=== PATIENT | female | born 1945 | race Caucasian/White ===

== ENCOUNTER 2017-03-13 16:00 | Emergency (ER) | payer OTHER ==
[~2017-03-13] VITALS: Wt 83.9 kg
[~2017-03-13 16:00] MED LIST: AMLODIPINE5 MG PO; ATIVAN1 MG PO; AUGMENTIN 875 M1 TAB PO; AUGMENTIN 875875 MG PO; BIAXIN500 MG PO; CLARITIN10 MG PO; KENALOG0.1% TP; LOMOTIL 0.025 M1 TA1 PO; MEDROL DOSEPAK4 MG PO; NASONEX0.05 MG/AC NS; PHENERGAN25 M1 PO; PRAVASTATIN SOD40 MG PO; PREDNICOT20 MG PO; SEPTRA DS 800 M1 TAB PO; SKELAXIN800 MG PO; TENORMIN25 MG PO; TRAMADOL50 MG PO; ULTRAM50 MG PO; VISTARIL25 MG PO; XYZAL5 MG PO; ZANTAC 150150 MG PO; ZITHROMAX100 MG/5 M PO; ZOFRAN ODT4 MG SL; ZOLOFT25 MG PO; [UNRECOGNIZED DRUG - OTHER] PO
[2017-03-13] MEDS ORDERED: AUGMENTIN 875875 MG PO (16:38)
== END 2017-03-13 16:39 | disposition home or self-care (01) ==
LOC: ED 16:00
DX: J01.10 Acute frontal sinusitis, unspecified (principal); Z88.1 Allergy status to other antibiotic agents; Z88.8 Allergy status to other drugs, medicaments and biological substances; Z79.899 Other long term (current) drug therapy

== ENCOUNTER → 2018-06-23 | Outpatient (CLI) | payer OTHER | END | disposition home or self-care (01) | LOC: RAD 16:16 | DX: M47.896 Other spondylosis, lumbar region (principal); R20.0 Anesthesia of skin ==

== ENCOUNTER → 2018-07-29 | Day surgery (SDC) | payer OTHER ==
[~2018-07-29] VITALS: Ht 162.5 cm; Wt 81.6 kg
[~2018-07-29] MED LIST changes: +BENICAR HCT 401 EACH PO; +LOPRESSOR25 MG PO
--- NOTE | ~2018-07-29 | O ---
[place], [place] OPERATIVE NOTE NAME: MAMTA PISANO UNIT #: [id number] ROOM: DOCTOR: ARNALDO WU MD BIRTHDATE: [birth year] DOS: 07/29/2018 PREOPERATIVE DIAGNOSIS: Cataract, left eye. POSTOPERATIVE DIAGNOSIS: Cataract, left eye. OPERATION: Extracapsular cataract extraction by phacoemulsification with posterior chamber intraocular lens implantation, left eye. ANESTHESIA: Monitored standby. OPERATIVE FINDINGS AND PROCEDURE: 2% Xylocaine topical anesthetic gel was applied to the eye in the preop area. The patient was taken to the operating room and prepped and draped in the standard fashion for sterile intraocular surgery. A time out procedure was performed verifying correct patient, correct site and corrects lens with Chica Wu M.D. The operating microscope was swung into position and the lid speculum was inserted. Using a Maryjo paracentesis blade, a paracentesis was made through clear cornea. Viscoelastic was used to fill the anterior chamber. Using a metal keratome a 2.4 mm self-sealing clear corneal cataract incision was made temporally at the limbus. Using a pre-bent 25 gauge cystotome needle, a standard continuous curvilinear capsulorrhexis was performed. The anterior capsule was removed with forceps. The lens nucleus was hydrodissected and phacoemulsified in the posterior chamber. Cortical material was removed with the irrigation aspiration hand piece and the posterior capsule was then polished with a curet under irrigation. The posterior chamber and capsular bag were filled with viscoelastic. A posterior chamber intraocular lens manufactured by: [employer], Model #[id number], and 19.5 diopters in strength were then inserted into the posterior chamber and within the capsular bag using the lens cartridge and injector system. Viscoelastic was removed using the irrigation aspiration handpiece. The anterior chamber was filled with balanced salt solution through the paracentesis. Both the paracentesis site and cataract incisions were hydrated with BSS and verified to be water-tight and self-sealing. The incision checked to be water-tight using a Weck-Carmen sponge. The integrity of the cataract wound and ocular tension were checked. Lid speculum and drapes were removed. The patient was transferred from the operating room to the recovery room in satisfactory condition. [place], [place] OPERATIVE NOTE NAME: MAMTA PISANO UNIT #: [id number] ROOM: DOCTOR: ARNALDO WU MD BIRTHDATE: [birth year] ARNALDO WU MD CM:OPRECORD:OPERATIVE NOTE [id number] ARNALDO WU MD 07/29/18 1436 interface
[2018-07-29 13:31] VITALS: BP 124/91
[2018-07-29 14:24] VITALS: BP 131/63
[2018-07-29 14:39] VITALS: BP 136/65
[2018-07-29 14:54] VITALS: BP 121/58
== END | disposition home or self-care (01) ==
LOC: SDC 07-28 01:24
DX: H25.812 Combined forms of age-related cataract, left eye (principal); I10 Essential (primary) hypertension; E78.5 Hyperlipidemia, unspecified; F41.8 Other specified anxiety disorders; M19.90 Unspecified osteoarthritis, unspecified site; G89.29 Other chronic pain; E66.9 Obesity, unspecified; Z68.30 Body mass index [BMI] 30.0-30.9, adult; Z88.1 Allergy status to other antibiotic agents; Z88.8 Allergy status to other drugs, medicaments and biological substances; Z79.899 Other long term (current) drug therapy; Z90.710 Acquired absence of both cervix and uterus

== ENCOUNTER → 2018-08-26 | Day surgery (SDC) | payer OTHER ==
[~2018-08-26] VITALS: Ht 162.5 cm; Wt 81.6 kg
--- NOTE | ~2018-08-26 | O ---
[place], [place] OPERATIVE NOTE NAME: MAMTA PISANO UNIT #: [id number] ROOM: DOCTOR: ARNALDO WU MD BIRTHDATE: [birth year] DOS: 08/26/2018 PREOPERATIVE DIAGNOSIS: Cataract, right eye. POSTOPERATIVE DIAGNOSIS: Cataract, right eye. OPERATION: Extracapsular cataract extraction by phacoemulsification with posterior chamber intraocular lens implantation, right eye. ANESTHESIA: Monitored standby. OPERATIVE FINDINGS AND PROCEDURE: 2% Xylocaine topical anesthetic gel was applied to the eye in the preop area. The patient was taken to the operating room and prepped and draped in the standard fashion for sterile intraocular surgery. A time out procedure was performed verifying correct patient, correct site and corrects lens with Chica Wu M.D. The operating microscope was swung into position and the lid speculum was inserted. Using a Maryjo paracentesis blade, a paracentesis was made through clear cornea. Viscoelastic was used to fill the anterior chamber. Using a metal keratome a 2.4 mm self-sealing clear corneal cataract incision was made temporally at the limbus. Using a pre-bent 25 gauge cystotome needle, a standard continuous curvilinear capsulorrhexis was performed. The anterior capsule was removed with forceps. The lens nucleus was hydrodissected and phacoemulsified in the posterior chamber. Cortical material was removed with the irrigation aspiration hand piece and the posterior capsule was then polished with a curet under irrigation. The posterior chamber and capsular bag were filled with viscoelastic. A posterior chamber intraocular lens manufactured by: [employer], Model #[id number], and 19.5 diopters in strength were then inserted into the posterior chamber and within the capsular bag using the lens cartridge and injector system. Viscoelastic was removed using the irrigation aspiration handpiece. The anterior chamber was filled with balanced salt solution through the paracentesis. Both the paracentesis site and cataract incisions were hydrated with BSS and verified to be water-tight and self-sealing. The incision checked to be water-tight using a Weck-Carmen sponge. The integrity of the cataract wound and ocular tension were checked. Lid speculum and drapes were removed. The patient was transferred from the operating room to the recovery room in satisfactory condition. [place], [place] OPERATIVE NOTE NAME: MAMTA PISANO UNIT #: [id number] ROOM: DOCTOR: ARNALDO WU MD BIRTHDATE: [birth year] ARNALDO WU MD CM:OPRECORD:OPERATIVE NOTE [id number] ARNALDO WU MD 08/26/18 1249 interface
[2018-08-26 10:23] VITALS: BP 146/60
[2018-08-26 11:25] VITALS: BP 103/83
[2018-08-26 11:40] VITALS: BP 121/53
[2018-08-26 11:55] VITALS: BP 125/60
== END | disposition home or self-care (01) ==
LOC: SDC 08-20 11:00
DX: H25.811 Combined forms of age-related cataract, right eye (principal); I10 Essential (primary) hypertension; E66.9 Obesity, unspecified; Z68.30 Body mass index [BMI] 30.0-30.9, adult; Z90.710 Acquired absence of both cervix and uterus; Z98.890 Other specified postprocedural states; Z88.1 Allergy status to other antibiotic agents; Z88.8 Allergy status to other drugs, medicaments and biological substances; Z98.41 Cataract extraction status, right eye; Z79.899 Other long term (current) drug therapy

== ENCOUNTER 2019-09-22 14:03 | Emergency (ER) | payer OTHER ==
[~2019-09-22] VITALS: Ht 162.5 cm; Wt 86.2 kg
[2019-09-22 14:39] LABS: BASO # 0.1 10*3/uL (0.0-0.1); BASO % 0.8 % (0.0-1.0); EOS # 0.3 10*3/uL (0.0-0.4); EOS % 3.4 % (1.0-4.0); HEMATOCRIT 39.7 % (37.0-47.0); HEMOGLOBIN 13.7 g/dl (12.0-16.0); LYMPH # 1.7 10*3/uL (1.3-4.4); LYMPH % 22.9 % (27.0-41.0); MEAN CORPUSCULAR HGB 31.1 pg (27.0-31.0); MEAN CORPUSCULAR HGB CONC 34.5 g/dl (33.0-37.0); MONO # 0.8 10*3/uL (0.1-1.0); MONO % 10.4 % (3.0-9.0); NEUT # 4.5 10*3/uL (2.3-7.9); NEUT % 61.7 % (47.0-73.0); RED BLOOD COUNT 4.41 10*6/uL (4.10-5.10); RED CELL DISTRI WIDTH 12.7 % (0-14.5); WHITE BLOOD COUNT 7.3 10*3/uL (4.8-10.8)
[2019-09-22 14:41] LABS: PLATELET COUNT AUTOMATED 209 10*3/uL (130-400)
[2019-09-22 15:09] LABS: ALBUMIN 3.6 gm/dl (3.1-4.5); ALKALINE PHOSPHATASE 87 U/L (45-117); BUN 14 mg/dl (7-24); CHLORIDE 106 mmol/L (98-107); CREATININE 0.89 mg/dL (0.55-1.02); POTASSIUM 3.4 mmol/L (3.5-5.1); SGOT/AST 28 IU/L (3-35); SGPT/ALT 40 U/L (12-78); SODIUM 140 mmol/L (136-145)
[2019-09-22] MEDS ORDERED: TESSALON PERLE100 M1 PO (15:17)
[2019-09-22] MEDS ORDERED: LEVAQUIN750 M1 PO (15:17)
[2019-09-22] MEDS ORDERED: PREDNISONE20 M1 PO (15:17)
[2019-09-22] MEDS ORDERED: FLONASE ALLERG9.9 ML NAS (15:18)
== END 2019-09-22 15:32 | disposition home or self-care (01) ==
LOC: ED 14:03
PROVIDERS: Physician Assistant
DX: J32.9 Chronic sinusitis, unspecified (principal); J40 Bronchitis, not specified as acute or chronic; Z88.1 Allergy status to other antibiotic agents; Z79.899 Other long term (current) drug therapy

== ENCOUNTER 2019-12-09 20:14 | Emergency (ER) | payer OTHER ==
[~2019-12-09] VITALS: Ht 165.1 cm; Wt 86.2 kg
[~2019-12-09 20:14] MED LIST changes: +FLONASE ALLERG9.9 ML NAS; +LEVAQUIN750 M1 PO; +PREDNISONE20 M1 PO; +TESSALON PERLE100 M1 PO
[2019-12-09] MEDS ORDERED: PREDNISONE10 MG PO (21:02)
== END 2019-12-09 21:25 | disposition home or self-care (01) ==
LOC: ED 20:14
DX: M54.16 Radiculopathy, lumbar region (principal); I10 Essential (primary) hypertension; Z88.1 Allergy status to other antibiotic agents; Z79.2 Long term (current) use of antibiotics; Z79.899 Other long term (current) drug therapy; Z90.710 Acquired absence of both cervix and uterus

== ENCOUNTER → 2020-07-12 | Outpatient (CLI) | payer OTHER ==
[~2020-07-12] MED LIST changes: +PREDNISONE10 MG PO
== END | disposition home or self-care (01) ==
LOC: RAD 13:30
DX: M85.89 Other specified disorders of bone density and structure, multiple sites (principal); Z78.0 Asymptomatic menopausal state

== ENCOUNTER → 2021-04-12 | Outpatient (CLI) | payer OTHER | END | disposition home or self-care (01) | LOC: RAD 14:25 | PROVIDERS: ATTEND Orthopaedic Surgery | DX: M25.852 Other specified joint disorders, left hip (principal); M79.605 Pain in left leg ==

== ENCOUNTER 2022-06-21 14:26 | Emergency (ER) | payer OTHER ==
[~2022-06-21] VITALS: Ht 162.5 cm; Wt 82.6 kg
[2022-06-21] MEDS ORDERED: AMOXICILLIN500 M2 PO (15:41)
[2022-06-21] MEDS ORDERED: FLONASE ALLERG9.9 ML NAS (15:41)
== END 2022-06-21 15:53 | disposition home or self-care (01) ==
LOC: ED 14:26
DX: J32.8 Other chronic sinusitis (principal); Z88.1 Allergy status to other antibiotic agents; Z79.899 Other long term (current) drug therapy; Z90.710 Acquired absence of both cervix and uterus; Z90.89 Acquired absence of other organs; Z98.890 Other specified postprocedural states

== ENCOUNTER 2022-07-02 10:11 | Emergency (ER) | payer OTHER ==
[~2022-07-02] VITALS: Ht 162.5 cm; Wt 84.8 kg
[~2022-07-02 10:11] MED LIST changes: +AMOXICILLIN500 M2 PO
== END 2022-07-02 10:49 | disposition home or self-care (01) ==
LOC: ED 10:11
DX: R20.0 Anesthesia of skin (principal); R20.2 Paresthesia of skin; G89.18 Other acute postprocedural pain; Z79.899 Other long term (current) drug therapy; Z79.2 Long term (current) use of antibiotics; Z88.1 Allergy status to other antibiotic agents

== ENCOUNTER 2022-10-02 13:26 | Emergency (ER) | payer OTHER, MEDICAID ==
[~2022-10-02] VITALS: Ht 162.5 cm; Wt 81.6 kg
== END 2022-10-02 14:34 | disposition home or self-care (01) ==
LOC: ED 13:26
DX: K12.1 Other forms of stomatitis (principal); Z88.1 Allergy status to other antibiotic agents; Z79.899 Other long term (current) drug therapy; Z79.2 Long term (current) use of antibiotics; Z90.710 Acquired absence of both cervix and uterus; Z90.89 Acquired absence of other organs

== ENCOUNTER → 2023-03-06 | Outpatient (CLI) | payer OTHER, MEDICAID | END | disposition home or self-care (01) | LOC: US 14:44 | PROVIDERS: ATTEND Urology | DX: N28.89 Other specified disorders of kidney and ureter (principal); N28.1 Cyst of kidney, acquired ==

== ENCOUNTER → 2023-03-11 | Outpatient (CLI) | payer OTHER, MEDICAID | END | disposition home or self-care (01) | LOC: RAD 14:49 | PROVIDERS: ATTEND Urology | DX: M47.817 Spondylosis without myelopathy or radiculopathy, lumbosacral region (principal); M85.88 Other specified disorders of bone density and structure, other site ==

== ENCOUNTER → 2023-12-23 | Outpatient (CLI) | payer OTHER, MEDICAID ==
[2023-12-23 14:16] LABS: BASO # 0.1 10*3/uL (0.0-0.1); BASO % 0.8 % (0.0-1.0); EOS # 0.2 10*3/uL (0.0-0.4); EOS % 3.7 % (1.0-4.0); LYMPH # 1.8 10*3/uL (1.3-4.4); LYMPH % 28.1 % (27.0-41.0); MEAN CELL VOLUME 87.5 fl (81.0-99.0); MEAN CORPUSCULAR HGB 29.8 pg (27.0-31.0); MEAN PLATELET VOLUME 9.4 fl (9.6-12.3); MONO # 0.6 10*3/uL (0.1-1.0); NEUT # 3.6 10*3/uL (2.3-7.9); NEUT % 57.8 % (47.0-73.0); PLATELET COUNT AUTOMATED 201 10*3/uL (130-400); RED CELL DISTRI WIDTH 12.8 % (0-14.5); WHITE BLOOD COUNT 6.3 10*3/uL (4.8-10.8)
[2023-12-24 09:08] LABS: HBSAG Negative (Negative); HEP B CORE AB, IGM Negative (Negative); HEPATITIS C ANTIBODY Non Reactive (Non Reactive)
[2023-12-24 13:07] LABS: ANTI-RNP ANTIBODIES <0.2 AI (0.0-0.9); CCP ANTIBODIES IGG/IGA 8 units (0-19)
[2023-12-25 00:06] LABS: LUPUS DRVVT 38.4 sec (0.0-47.0); PTT-LA 36.2 sec (0.0-43.5)
[2023-12-25 01:06] LABS: LUPUS REFLEX INTERPRETATION Comment: (.)
[2023-12-29 18:07] LABS: HLA-B27 ANTIGEN Positive (.)
== END | disposition home or self-care (01) ==
LOC: LAB 13:27
PROVIDERS: ATTEND Orthopaedic Surgery
DX: M79.642 Pain in left hand (principal); M79.641 Pain in right hand; R53.83 Other fatigue